=== PATIENT | female | born 1945 | race Caucasian/White ===

== ENCOUNTER 2018-07-31 12:28 | Outpatient (CLI) | payer MEDICARE | END 2018-07-31 12:29 | disposition home or self-care (01) | LOC: BICMAMMO 12:28 | PROVIDERS: ATTEND Nurse Practitioner Adult Health | DX: Z12.31 Encounter for screening mammogram for malignant neoplasm of breast (principal); Z80.3 Family history of malignant neoplasm of breast | CPT/HCPCS: 77063; 77067 ==

== ENCOUNTER 2019-04-06 13:11 | Emergency (ER) | payer MEDICARE | END 2019-04-06 14:15 | disposition home or self-care (01) | LOC: ERS 13:11 | DX: M79.651 Pain in right thigh (principal); I10 Essential (primary) hypertension; F17.200 Nicotine dependence, unspecified, uncomplicated | CPT/HCPCS: 99283 ==

== ENCOUNTER 2019-04-22 11:52 | Outpatient (CLI) | payer MEDICARE ==
--- NOTE | 2019-04-22 14:22 | MRI ---
EXAM: Lumbar spine MRI without contrast. HISTORY: Lumbar spondylosis low back pain COMPARISON: None FINDINGS: Multiplanar, multisequence MRI examination of the lumbar spine is performed. The conus medullaris region appears unremarkable. No evidence for abnormal marrow signal. 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 Grade 1 anterolisthesis of L4 and L5. Mild disc bulging at T11-T12. T12-L1 disc level: Central annular fissure with mild lateral recess stenosis worse on the left side L1-L2 disc level: Severe central canal and lateral recess stenosis and moderate bilateral foraminal s tenosis. L2-L3 disc level: Severe bilateral recess stenosis and severe central canal stenosis and moderate for aminal stenosis more severe on the right side. L3-L4 disc level: Severe central canal and lateral recess and moderate to severe bilateral foraminal stenosis. L4-L5 disc level: Grade 1 anterolisthesis with severe central canal, lateral recess, and foraminal st enosis. L5-S1 disc level: Moderate to severe central canal and lateral recess stenosis and bilateral foramina l stenosis. IMPRESSION: Multilevel variable severity canal, lateral recess, or foraminal stenosis up to severe at multiple le vels.
== END 2019-04-22 11:53 | disposition home or self-care (01) ==
LOC: BICMRI 11:52
PROVIDERS: ATTEND Psychiatry & Neurology Psychiatry
DX: M48.16 Ankylosing hyperostosis [Forestier], lumbar region (principal); M48.061 Spinal stenosis, lumbar region without neurogenic claudication
CPT/HCPCS: 72148

== ENCOUNTER 2021-06-15 18:43 | Inpatient (IN) | payer MEDICARE ==
[2021-06-15 19:28] LABS: #Basophils 0.1 thou/uL (0.0-0.2); #Eosinphils 0.2 thou/uL (0.0-0.7); #Monocytes 0.8 thou/uL (0.11-0.59); #Neutrophils 4.7 thou/uL (1.40-6.50); %Basophils 1.1 % (0.0-1.0); %Eosinophils 2.8 % (0.0-10.0); %Lymphocytes 33.8 % (21.0-51.0); %Monocytes 8.9 % (0.0-10.0); %Neutrophils 53.4 % (42.0-75.0); Hemoglobin 13.1 g/dL (12.0-16.0); Mean Corpuscular HGB CONC 33.2 g/dL (32.0-36.0); Mean Corpuscular Hemoglobin 31.9 pg (27.0-31.0); Mean Corpuscular Volume 95.9 fL (78.0-98.0); Mean Platelet Volume 7.8 fL (7.4-10.4); Platelet Count 179 thou/uL (130-400); RBC Distribution Width 11.4 % (11.5-14.5); Red Blood Cell (RBC) Count 4.12 mill/uL (4.20-5.40); White Blood Cell (WBC) Count 8.8 thou/uL (4.8-10.8)
[2021-06-15 19:49] LABS: ALT (SGPT) 13 U/L (8-55); AST (SGOT) 16 U/L (5-34); Albumin 3.7 g/dL (3.4-4.8); Alkaline Phosphatase 47 U/L (40-110); Anion Gap 12 mmol/L (10-20); BUN (Urea Nitrogen) 19 mg/dL (9.8-20.1); Bilirubin, Total 0.6 mg/dL (0.2-1.2); Calc. Creatinine Clearance 0 mL/min (70-130); Calcium 9.1 mg/dL (7.8-10.44); Carbon Dioxide 24 mmol/L (23-31); Chloride 109 mmol/L (98-107); Globulin 3.3 g/dL (2.4-3.5); Glucose 90 mg/dL (83-110); Potassium 4.1 mmol/L (3.5-5.1); Sodium 141 mmol/L (136-145)
[2021-06-15 19:50] LABS: INR-International Normal Ratio 1.1; Prothrombin Time 14.2 sec (12.0-14.7)
[2021-06-15 19:56] LABS: PTT 141.7 sec (22.9-36.1)
[2021-06-15 20:11] LABS: CKMB 2.1 ng/mL (0-6.6)
[2021-06-15] MEDS ORDERED: Enoxaparin Sodium 80 MG/0.8 ML SYRINGE ONE (20:13)
[2021-06-15] MEDS ORDERED: Enoxaparin Sodium 30 MG/0.3 ML SYRINGE ONE (20:13)
[2021-06-15 21:42] VITALS: BMI 41.4
[2021-06-15] MEDS ORDERED: Aspirin Chewable 81 MG TAB PO SCH (21:45)
[2021-06-15 22:48] LABS: Troponin I 0.127 ng/mL (< 0.028)
[2021-06-15] MEDS: Mag-Al 1200 mg/1200 mg/30 ML UDCUP PO PRN (23:28)
[2021-06-16 01:54] LABS: Troponin I 0.118 ng/mL (< 0.028)
[2021-06-16 05:26] LABS: #Basophils 0.1 thou/uL (0.0-0.2); #Eosinphils 0.2 thou/uL (0.0-0.7); #Lymphocytes 2.6 thou/uL (1.20-3.40); #Monocytes 0.8 thou/uL (0.11-0.59); #Neutrophils 3.6 thou/uL (1.40-6.50); %Basophils 1.5 % (0.0-1.0); %Eosinophils 2.9 % (0.0-10.0); %Lymphocytes 35.3 % (21.0-51.0); %Neutrophils 49.2 % (42.0-75.0); Hemoglobin 12.7 g/dL (12.0-16.0); Mean Corpuscular HGB CONC 34.6 g/dL (32.0-36.0); Mean Corpuscular Hemoglobin 33.6 pg (27.0-31.0); Mean Corpuscular Volume 97.1 fL (78.0-98.0); Platelet Count 159 thou/uL (130-400); RBC Distribution Width 11.3 % (11.5-14.5); Red Blood Cell (RBC) Count 3.79 mill/uL (4.20-5.40); White Blood Cell (WBC) Count 7.3 thou/uL (4.8-10.8)
[2021-06-16 05:54] LABS: Anion Gap 13 mmol/L (10-20); BUN (Urea Nitrogen) 22 mg/dL (9.8-20.1); Calc. Creatinine Clearance 66 mL/min (70-130); Carbon Dioxide 21 mmol/L (23-31); Chloride 110 mmol/L (98-107); Cholesterol 178 mg/dl (< 200 Desired); Glucose 95 mg/dL (83-110); HDL Cholesterol 45 mg/dL (>60 Neg Risk); LDL Cholesterol, Calculated 108 mg/dL; Potassium 3.9 mmol/L (3.5-5.1); Sodium 140 mmol/L (136-145); Triglycerides 123 mg/dL (Less than 150)
[2021-06-16] MEDS: Aspirin Chewable 81 MG TAB PO SCH (07:20)
[2021-06-16 07:24] LABS: Magnesium 1.9 mg/dL (1.6-2.6); Phosphorus 3.9 mg/dL (2.3-4.7)
[2021-06-16] MEDS: Enoxaparin Sodium 120 MG/0.8 ML SYRINGE SC SCH ×2 (07:27→20:53)
[2021-06-16 07:28] LABS: Hemoglobin A1c 4.9 % (4.0-6.0)
[2021-06-16] MEDS ORDERED: Metoprolol Tartrate 25 MG TAB PO SCH (11:45)
[2021-06-16] MEDS ORDERED: Acetaminophen 500 MG TAB PO PRN (20:36)
[2021-06-16] MEDS ORDERED: Melatonin 3 MG TAB PO PRN (20:36)
[2021-06-16] MEDS ORDERED: Docusate 100 MG CAP PO PRN (20:36)
[2021-06-16] MEDS: Metoprolol Tartrate 25 MG TAB PO SCH (20:53)
[2021-06-17] MEDS: Atorvastatin Calcium 40 MG TAB PO SCH (08:33)
[2021-06-17] MEDS: Aspirin Chewable 81 MG TAB PO SCH (08:33)
[2021-06-17] MEDS: Metoprolol Tartrate 25 MG TAB PO SCH ×2 (08:34→21:05)
[2021-06-17] MEDS: Enoxaparin Sodium 120 MG/0.8 ML SYRINGE SC SCH ×2 (08:34→21:06)
[2021-06-17 14:04] LABS: SARS-CoV-2 PCR by NAA Indeterminate (NotDetected)
[2021-06-17] MEDS ORDERED: Atorvastatin Calcium 40 MG TAB PO SCH (21:00)
[2021-06-18 01:39] LABS: SARS-CoV-2 NAA Rapid Test Not Detected (NotDetected)
[2021-06-18] MEDS: Metoprolol Tartrate 25 MG TAB PO SCH ×2 (06:13→21:07)
[2021-06-18] MEDS: Atorvastatin Calcium 40 MG TAB PO SCH (06:13)
[2021-06-18] MEDS: Aspirin Chewable 81 MG TAB PO SCH (06:13)
[2021-06-18] MEDS ORDERED: Non-Formulary Item 1 EACH (Esomeprazole Magnesium [Esomeprazole Magnesium] 20 MG Capsule. PO PRN (06:40)
[2021-06-18] MEDS ORDERED: Heparin 10,000 UNITS/ 10 ML VIAL ONE (07:54)
[2021-06-18] MEDS ORDERED: Nitroglycerin 100MG/250ML BOT 0 ML ONE (07:54)
[2021-06-18] MEDS ORDERED: Lidocaine 1% (PF) 30 ML VIAL ONE (07:54)
[2021-06-18] MEDS ORDERED: Verapamil 5 MG/2 ML VIAL ONE (07:54)
[2021-06-18] MEDS ORDERED: Midazolam HCl 2 mg/2 ml Vial ONE (08:17)
[2021-06-18] MEDS ORDERED: Fentanyl 100 MCG/2 ML VIAL ONE (08:17)
[2021-06-18] MEDS ORDERED: Metoprolol Tartrate 5 MG/5 ML VIAL ONE (08:32)
[2021-06-18] MEDS ORDERED: Ondansetron PF 4 MG/2 ML Vial ONE (08:32)
[2021-06-18] MEDS ORDERED: Atropine Sulfate 1 mg/10 ml Syringe ONE (08:33)
[2021-06-18] MEDS ORDERED: Sodium Chloride 0.9% 200 ML IV PRN (08:50)
[2021-06-18] MEDS ORDERED: Acetaminophen/Codeine 30-300mg Tablet PO PRN (08:50)
[2021-06-18] MEDS ORDERED: Nitroglycerin 0.4 MG TAB (25 Tab Bottle) SL PRN (08:50)
[2021-06-18] MEDS ORDERED: Cyanocobalamin (Vitamin B-12) 1,000 MCG TAB PO SCH (09:00)
[2021-06-18] MEDS ORDERED: Multivit, Therapeutic 1 TAB PO SCH (09:00)
[2021-06-18] MEDS ORDERED: CHOLECALCIFEROL PO SCH ×2 (09:00)
[2021-06-18] MEDS ORDERED: ZINC PO SCH ×2 (09:00)
[2021-06-18] MEDS ORDERED: CALCIUM PO SCH ×2 (09:00)
[2021-06-18] MEDS ORDERED: Non-Formulary Item 1 EACH (Cyanocobalamin (Vitamin B-12) [Vitamin B12] 2,500 MCG Tablet) PO SCH (09:00)
[2021-06-18] MEDS ORDERED: Non-Formulary Item 1 EACH (Multivit-Min/Iron/Folic/Lutein [Multivitamin Women 50 Plus Tab PO SCH (09:00)
[2021-06-18] MEDS ORDERED: Sodium Chloride 0.9% 500 ML IV SCH (09:00)
[2021-06-18] MEDS ORDERED: MAGNESIUM PO SCH ×2 (09:00)
[2021-06-18] MEDS: Lisinopril 10 MG TAB PO SCH (09:44)
[2021-06-18] MEDS ORDERED: Iopamidol 370 76% 100 ML VIAL ONE (10:57)
[2021-06-18 12:04] LABS: #Basophils 0.1 thou/uL (0.0-0.2); #Eosinphils 0.2 thou/uL (0.0-0.7); #Lymphocytes 2.4 thou/uL (1.20-3.40); #Monocytes 0.6 thou/uL (0.11-0.59); #Neutrophils 3.9 thou/uL (1.40-6.50); %Basophils 1.2 % (0.0-1.0); %Eosinophils 2.5 % (0.0-10.0); %Lymphocytes 33.3 % (21.0-51.0); %Monocytes 7.9 % (0.0-10.0); %Neutrophils 55.1 % (42.0-75.0); Hemoglobin 13.4 g/dL (12.0-16.0); Mean Corpuscular HGB CONC 32.8 g/dL (32.0-36.0); Mean Corpuscular Hemoglobin 31.7 pg (27.0-31.0); Mean Corpuscular Volume 96.6 fL (78.0-98.0); Mean Platelet Volume 8.1 fL (7.4-10.4); Platelet Count 178 thou/uL (130-400); RBC Distribution Width 11.4 % (11.5-14.5); Red Blood Cell (RBC) Count 4.23 mill/uL (4.20-5.40); White Blood Cell (WBC) Count 7.1 thou/uL (4.8-10.8)
[2021-06-18 12:20] LABS: ALT (SGPT) 23 U/L (8-55); AST (SGOT) 30 U/L (5-34); Albumin 3.5 g/dL (3.4-4.8); Alkaline Phosphatase 46 U/L (40-110); Anion Gap 10 mmol/L (10-20); BUN (Urea Nitrogen) 23 mg/dL (9.8-20.1); Bilirubin, Total 0.7 mg/dL (0.2-1.2); Calc. Creatinine Clearance 57 mL/min (70-130); Calcium 9.5 mg/dL (7.8-10.44); Carbon Dioxide 25 mmol/L (23-31); Chloride 106 mmol/L (98-107); Globulin 3.4 g/dL (2.4-3.5); Glucose 105 mg/dL (83-110); Potassium 4.3 mmol/L (3.5-5.1); Protein, Total 6.9 g/dL (5.8-8.1); Sodium 137 mmol/L (136-145)
[2021-06-18] MEDS: Mag-Al 1200 mg/1200 mg/30 ML UDCUP PO PRN (21:07)
[2021-06-19] MEDS ORDERED: ceFAZolin Sodium (SDC) 2 GM in Premix Bag 1 BAG IVPB SCH (02:00)
[2021-06-19] MEDS: Metoprolol Tartrate 25 MG TAB PO SCH (05:31)
[2021-06-19] MEDS: Lisinopril 10 MG TAB PO SCH (05:31)
[2021-06-19] MEDS ORDERED: Albumin 5% 500 ML ONE (06:27)
[2021-06-19] MEDS ORDERED: Heparin 10,000 UNITS/1 ML VIAL 30,000 UNITS in Sodium Chloride 0.9% 1,000 ML FS SCH (06:45)
[2021-06-19] MEDS ORDERED: Dexmedetomidine 200 MCG/2 ML VIAL ONE ×2 (06:54→07:54)
[2021-06-19] MEDS ORDERED: Midazolam HCl 5 mg/5 ml Vial ONE (06:54)
[2021-06-19] MEDS ORDERED: Fentanyl 250 MCG/5 ML VIAL ONE (06:54)
[2021-06-19] MEDS ORDERED: ceFAZolin 2 GM/DEX 5% 100 ML BAG ONE (07:17)
[2021-06-19] MEDS ORDERED: Heparin 5,000 UNITS/ML VIAL ONE (07:36)
[2021-06-19] MEDS ORDERED: Aminocaproic Acid 5 GM/20 ML VIAL ONE (07:36)
[2021-06-19] MEDS ORDERED: Dexamethasone 20 MG/5 ML VIAL ONE (07:36)
[2021-06-19] MEDS ORDERED: Protamine Sulfate 250 MG/25 ML VIAL ONE (07:36)
[2021-06-19] MEDS ORDERED: Potassium Chloride 60 MEQ/30 ML VIAL ONE (07:36)
[2021-06-19] MEDS ORDERED: Calcium Chloride 1 GM/10 ML Abboject SYRINGE ONE (07:36)
[2021-06-19] MEDS ORDERED: Nitroglycerin 50 MG/250 ML BOT ONE (07:36)
[2021-06-19] MEDS ORDERED: Mannitol 12.5 GM/50 ML ONE (07:36)
[2021-06-19] MEDS ORDERED: Heparin 30,000 units/30 ml VIAL ONE (07:36)
[2021-06-19] MEDS ORDERED: Lidocaine 1% PF 5 ML VIAL ONE (07:36)
[2021-06-19] MEDS ORDERED: Ondansetron PF 4 MG/2 ML Vial ONE (07:36)
[2021-06-19] MEDS ORDERED: Vecuronium 10 MG VIAL ONE (07:36)
[2021-06-19] MEDS ORDERED: Magnesium Sulfate 1 GM/2 ML VIAL ONE (07:36)
[2021-06-19] MEDS ORDERED: Cardioplegic Soln 1,000 ML BAG ONE (07:36)
[2021-06-19] MEDS ORDERED: Thrombin 5000 UNITS/5 ML VIAL ONE (07:36)
[2021-06-19] MEDS ORDERED: PROPOFOL 200 MG/20 ML VIAL ONE (07:36)
[2021-06-19] MEDS ORDERED: Sodium Bicarb 50 MEQ/50 ML Abboject 8.4% SYRINGE ONE ×2 (07:36→12:45)
[2021-06-19] MEDS ORDERED: Papaverine 60 MG/2 ML VIAL ONE (07:36)
[2021-06-19] MEDS ORDERED: Lidocaine 2% PF 100 mg/5 ml Syringe ONE (07:36)
[2021-06-19] MEDS ORDERED: Glycopyrrolate 0.2 MG/ML 5 ML SYRINGE ONE (07:36)
[2021-06-19] MEDS ORDERED: Insulin Regular 300 UNITS/3 ML VIAL ONE (09:52)
[2021-06-19] MEDS ORDERED: Bisacodyl 10 MG SUPP PR PRN (11:03)
[2021-06-19] MEDS ORDERED: Morphine 2 MG/ML VIAL SLOW IVP PRN (11:03)
[2021-06-19] MEDS ORDERED: DOPamine 400 MG/D5W 250 ML 250 ML IVPB PRN (11:03)
[2021-06-19] MEDS ORDERED: Fentanyl 100 MCG/2 ML VIAL SLOW IVP PRN (11:03)
[2021-06-19] MEDS ORDERED: Mag-Al 1200 mg/1200 mg/30 ML UDCUP PO PRN (11:03)
[2021-06-19] MEDS ORDERED: Post-Op Insulin Drip Protocol IVPB ONE (11:03)
[2021-06-19] MEDS ORDERED: Nitroglycerin 50 MG/250 ML BOT 250 ML IVPB PRN (11:03)
[2021-06-19] MEDS ORDERED: hydrALAZINE 20 MG/ML VIAL SLOW IVP PRN (11:03)
[2021-06-19] MEDS ORDERED: Norepinephrine 8 MG/0.9% NS 250 ML IVPB PRN (11:03)
[2021-06-19] MEDS ORDERED: Hetastarch 6% 500 ML 500 ML IVPB PRN (11:03)
[2021-06-19] MEDS ORDERED: Guaifenesin DM 100-10/5 ML UDCUP PO PRN (11:03)
[2021-06-19] MEDS ORDERED: Acetaminophen 325 MG TAB PO PRN (11:03)
[2021-06-19] MEDS ORDERED: Promethazine HCl 25 MG/ML VIAL IM PRN (11:03)
[2021-06-19] MEDS ORDERED: Potassium Chloride 20 MEQ/100 ML PREMIX BAG IVPB PRN (11:03)
[2021-06-19] MEDS ORDERED: niCARdipine 25 MG in Sodium Chloride 0.9% 250 ML 250 ML IVPB PRN (11:03)
[2021-06-19 11:43] LABS: #Eosinphils 0.1 thou/uL (0.0-0.7); #Lymphocytes 2.4 thou/uL (1.20-3.40); #Monocytes 0.8 thou/uL (0.11-0.59); %Basophils 0.2 % (0.0-1.0); %Lymphocytes 16.6 % (21.0-51.0); %Monocytes 5.8 % (0.0-10.0); %Neutrophils 76.4 % (42.0-75.0); Hemoglobin 11.6 g/dL (12.0-16.0); Mean Corpuscular HGB CONC 34.7 g/dL (32.0-36.0); Mean Corpuscular Hemoglobin 33.9 pg (27.0-31.0); Mean Corpuscular Volume 97.6 fL (78.0-98.0); Platelet Count 141 thou/uL (130-400); RBC Distribution Width 11.4 % (11.5-14.5); Red Blood Cell (RBC) Count 3.42 mill/uL (4.20-5.40); White Blood Cell (WBC) Count 14.5 thou/uL (4.8-10.8)
[2021-06-19 12:01] LABS: INR-International Normal Ratio 1.2; Prothrombin Time 15.8 sec (12.0-14.7)
[2021-06-19] MEDS ORDERED: HUMULIN R 100 UNITS in Sodium Chloride 0.9% 100 ML IVPB SCH (12:15)
[2021-06-19] MEDS ORDERED: Insulin Regular 300 UNITS/3 ML VIAL SC PRN (12:15)
[2021-06-19] MEDS ORDERED: Dextrose 50% Abboject 50 ML SYRINGE SLOW IVP PRN (12:15)
[2021-06-19] MEDS ORDERED: Dextrose 5% in Water 1,000 ML IV PRN (12:15)
[2021-06-19] MEDS ORDERED: Lantus 1000 UNITS/10 ML VIAL SC PRN (12:15)
[2021-06-19] MEDS: Lactated Ringer's 1,000 ML IV SCH (12:16)
[2021-06-19] MEDS: Fentanyl 100 MCG/2 ML VIAL SLOW IVP PRN ×4 (12:16→23:13)
[2021-06-19 12:18] LABS: Anion Gap 9 mmol/L (10-20); BUN (Urea Nitrogen) 19 mg/dL (9.8-20.1); Calc. Creatinine Clearance 64 mL/min (70-130); Calcium 7.9 mg/dL (7.8-10.44); Carbon Dioxide 26 mmol/L (23-31); Chloride 108 mmol/L (98-107); Glucose 96 mg/dL (83-110); Potassium 4.3 mmol/L (3.5-5.1); Sodium 139 mmol/L (136-145)
[2021-06-19] MEDS ORDERED: Sodium Bicarb 50 MEQ/50 ML Abboject 8.4% SYRINGE IVP SCH (13:15)
[2021-06-19] MEDS: ceFAZolin Sodium/D5W 2 GM in Premix Bag 1 BAG IVPB SCH ×2 (13:46→21:12)
[2021-06-19] MEDS: HYDROcodone/Acetaminophen 5/325 mg Tablet PO PRN ×2 (13:46→21:11)
[2021-06-19 17:02] LABS: Hemoglobin 11.2 g/dL (12.0-16.0)
[2021-06-19 17:11] LABS: Potassium 4.7 mmol/L (3.5-5.1)
[2021-06-19] MEDS: Ondansetron PF 4 MG/2 ML Vial IVP PRN (20:09)
[2021-06-19] MEDS ORDERED: Famotidine/PF 20 mg/2ml Vial SLOW IVP SCH (21:00)
[2021-06-20] MEDS: HYDROcodone/Acetaminophen 5/325 mg Tablet PO PRN ×5 (02:12→23:25)
[2021-06-20] MEDS: Fentanyl 100 MCG/2 ML VIAL SLOW IVP PRN ×3 (02:13→07:41)
[2021-06-20] MEDS: Lactated Ringer's 1,000 ML IV SCH (02:14)
[2021-06-20 04:11] LABS: Anion Gap 10 mmol/L (10-20); BUN (Urea Nitrogen) 22 mg/dL (9.8-20.1); Calc. Creatinine Clearance 57 mL/min (70-130); Calcium 7.9 mg/dL (7.8-10.44); Carbon Dioxide 24 mmol/L (23-31); Chloride 106 mmol/L (98-107); Glucose 117 mg/dL (83-110); Potassium 4.4 mmol/L (3.5-5.1); Sodium 136 mmol/L (136-145)
[2021-06-20] MEDS: ceFAZolin Sodium/D5W 2 GM in Premix Bag 1 BAG IVPB SCH (05:20)
[2021-06-20] MEDS: Ondansetron PF 4 MG/2 ML Vial IVP PRN ×3 (06:50→19:19)
[2021-06-20] MEDS ORDERED: Nitroglycerin 0.4 MG TAB (25 Tab Bottle) SL PRN (08:29)
[2021-06-20] MEDS ORDERED: Mineral Oil ENEMA PR PRN (08:29)
[2021-06-20] MEDS: Aspirin 325 MG TAB PO SCH (09:30)
[2021-06-20] MEDS: Famotidine 20 MG TAB PO SCH ×2 (09:30→19:18)
[2021-06-20] MEDS: Polyethylene Glycol 3350 17 GM Packet PO SCH (09:30)
[2021-06-20] MEDS: Clopidogrel Bisulfate 75 MG TAB PO SCH (09:30)
[2021-06-20] MEDS ORDERED: DOPamine 400 MG/D5W 250 ML 250 ML ONE (16:35)
[2021-06-20] MEDS ORDERED: DOPamine 400 MG/D5W 250 ML 250 ML IVPB SCH (17:30)
[2021-06-20] MEDS: Atorvastatin Calcium 40 MG TAB PO SCH (19:18)
[2021-06-20] MEDS: Bisacodyl 5 MG TAB PO PRN (20:17)
[2021-06-20] MEDS ORDERED: Enoxaparin Sodium 40 MG/0.4 ML SYRINGE SC SCH (21:00)
[2021-06-20] MEDS ORDERED: Famotidine/PF 20 mg/2ml Vial SLOW IVP SCH (21:00)
[2021-06-21] MEDS: HYDROcodone/Acetaminophen 5/325 mg Tablet PO PRN ×3 (03:51→23:02)
[2021-06-21 07:52] LABS: Anion Gap 14 mmol/L (10-20); BUN (Urea Nitrogen) 34 mg/dL (9.8-20.1); Calc. Creatinine Clearance 44 mL/min (70-130); Calcium 7.9 mg/dL (7.8-10.44); Carbon Dioxide 21 mmol/L (23-31); Chloride 102 mmol/L (98-107); Glucose 114 mg/dL (83-110); Potassium 4.7 mmol/L (3.5-5.1); Sodium 132 mmol/L (136-145)
[2021-06-21 08:33] LABS: Band 8 % (5-11); Hemoglobin 10.1 g/dL (12.0-16.0); Lymphocytes 11 % (21-51); MDiff Complete? YES; Mean Corpuscular HGB CONC 32.8 g/dL (32.0-36.0); Mean Corpuscular Hemoglobin 32.1 pg (27.0-31.0); Mean Corpuscular Volume 97.7 fL (78.0-98.0); Monocytes 14 % (0-10); Neutrophil 66 % (42-75); Platelet Count 119 thou/uL (130-400); Platelet Morphology Comment Appears Decreased; Polychromasia SLIGHT = 2-3 cells (100X) (0-2/hpf); RBC Distribution Width 11.6 % (11.5-14.5); Red Blood Cell (RBC) Count 3.15 mill/uL (4.20-5.40); White Blood Cell (WBC) Count 14.1 thou/uL (4.8-10.8)
[2021-06-21] MEDS: Aspirin 325 MG TAB PO SCH (09:03)
[2021-06-21] MEDS: Polyethylene Glycol 3350 17 GM Packet PO SCH (09:04)
[2021-06-21] MEDS: Furosemide 40 MG TAB PO SCH (09:04)
[2021-06-21] MEDS: Clopidogrel Bisulfate 75 MG TAB PO SCH (09:04)
[2021-06-21] MEDS: Amiodarone 450 MG in Dextrose 5% in Water 250 ML IVPB SCH (16:15)
[2021-06-21] MEDS ORDERED: Enoxaparin Sodium 30 MG/0.3 ML SYRINGE SC SCH (21:00)
[2021-06-21] MEDS: Atorvastatin Calcium 40 MG TAB PO SCH (22:55)
[2021-06-21] MEDS: Famotidine 20 MG TAB PO SCH (22:55)
[2021-06-22] MEDS: Amiodarone 450 MG in Dextrose 5% in Water 250 ML IVPB SCH (01:53)
[2021-06-22 07:04] LABS: Anion Gap 9 mmol/L (10-20); BUN (Urea Nitrogen) 34 mg/dL (9.8-20.1); Calc. Creatinine Clearance 49 mL/min (70-130); Calcium 8.1 mg/dL (7.8-10.44); Carbon Dioxide 26 mmol/L (23-31); Chloride 102 mmol/L (98-107); Glucose 105 mg/dL (83-110); Potassium 4.4 mmol/L (3.5-5.1); Sodium 133 mmol/L (136-145)
[2021-06-22] MEDS: Polyethylene Glycol 3350 17 GM Packet PO SCH (09:03)
[2021-06-22] MEDS: Clopidogrel Bisulfate 75 MG TAB PO SCH (09:05)
[2021-06-22] MEDS: Aspirin Chewable 81 MG TAB PO SCH (09:05)
[2021-06-22] MEDS: Furosemide 40 MG TAB PO SCH (09:05)
[2021-06-22] MEDS: HYDROcodone/Acetaminophen 5/325 mg Tablet PO PRN ×2 (09:06→20:17)
[2021-06-22] MEDS: Atorvastatin Calcium 40 MG TAB PO SCH (20:15)
[2021-06-22] MEDS: Amiodarone 200 MG TAB PO SCH (20:15)
[2021-06-22] MEDS: Famotidine 20 MG TAB PO SCH (20:15)
[2021-06-23 04:42] LABS: #Basophils 0.1 thou/uL (0.0-0.2); #Eosinphils 0.2 thou/uL (0.0-0.7); #Lymphocytes 2.3 thou/uL (1.20-3.40); #Monocytes 1.4 thou/uL (0.11-0.59); #Neutrophils 6.5 thou/uL (1.40-6.50); %Basophils 0.7 % (0.0-1.0); %Eosinophils 2.1 % (0.0-10.0); %Lymphocytes 21.7 % (21.0-51.0); %Neutrophils 62.5 % (42.0-75.0); Hemoglobin 9.3 g/dL (12.0-16.0); Mean Corpuscular HGB CONC 34.8 g/dL (32.0-36.0); Mean Corpuscular Hemoglobin 33.7 pg (27.0-31.0); Mean Corpuscular Volume 96.9 fL (78.0-98.0); Platelet Count 173 thou/uL (130-400); RBC Distribution Width 11.6 % (11.5-14.5); Red Blood Cell (RBC) Count 2.76 mill/uL (4.20-5.40); White Blood Cell (WBC) Count 10.4 thou/uL (4.8-10.8)
[2021-06-23 05:09] LABS: Anion Gap 12 mmol/L (10-20); BUN (Urea Nitrogen) 27 mg/dL (9.8-20.1); Calc. Creatinine Clearance 59 mL/min (70-130); Calcium 8.4 mg/dL (7.8-10.44); Carbon Dioxide 24 mmol/L (23-31); Chloride 103 mmol/L (98-107); Glucose 94 mg/dL (83-110); Potassium 4.5 mmol/L (3.5-5.1); Sodium 134 mmol/L (136-145)
[2021-06-23] MEDS: Furosemide 40 MG TAB PO SCH (08:54)
[2021-06-23] MEDS: Amiodarone 200 MG TAB PO SCH ×2 (08:54→20:12)
[2021-06-23] MEDS: Clopidogrel Bisulfate 75 MG TAB PO SCH (08:54)
[2021-06-23] MEDS: Aspirin Chewable 81 MG TAB PO SCH (08:54)
[2021-06-23] MEDS: Polyethylene Glycol 3350 17 GM Packet PO SCH (08:54)
[2021-06-23] MEDS: Bisacodyl 5 MG TAB PO PRN (15:19)
[2021-06-23] MEDS: Atorvastatin Calcium 40 MG TAB PO SCH (20:12)
[2021-06-23] MEDS: Famotidine 20 MG TAB PO SCH (20:13)
[2021-06-23] MEDS: HYDROcodone/Acetaminophen 5/325 mg Tablet PO PRN (20:13)
[2021-06-24] MEDS: Amiodarone 200 MG TAB PO SCH ×2 (08:37→20:42)
[2021-06-24] MEDS: Aspirin Chewable 81 MG TAB PO SCH (08:37)
[2021-06-24] MEDS: Polyethylene Glycol 3350 17 GM Packet PO SCH (08:38)
[2021-06-24] MEDS: Clopidogrel Bisulfate 75 MG TAB PO SCH (08:38)
[2021-06-24] MEDS: Furosemide 40 MG TAB PO SCH (08:38)
[2021-06-24 16:53] LABS: Bacteria/HPF 1+ HPF (None Seen); Bilirubin Negative (Negative); Blood, Urine Negative (Negative); Clarity Clear (Clear); Glucose, Urine (Dipstick) Normal (Negative); Ketone, Urine Negative (Negative); Leukocyte 250 Leu/uL (Negative); Nitrite Negative (Negative); Protein, Urine (Dipstick) Negative (Neg-Trace); RBC/HPF 0-3 HPF (0-3); Squamous Epithelial None Seen HPF (0-3); Urobilinogen Normal mg/dL (Less than 2); pH, Urine 5.5 (5.0-9.0)
[2021-06-24 16:55] LABS: Urine Culture Reflex Yes Yes
[2021-06-24] MEDS: Famotidine 20 MG TAB PO SCH (20:41)
[2021-06-24] MEDS: HYDROcodone/Acetaminophen 5/325 mg Tablet PO PRN (20:42)
[2021-06-24] MEDS: Atorvastatin Calcium 40 MG TAB PO SCH (20:42)
[2021-06-24] MEDS ORDERED: Tamsulosin HCl 0.4 MG CAP PO SCH (21:00)
[2021-06-24] MEDS ORDERED: cefTRIAXone\\ROCEPHIN 1 GM in Sodium Chloride 0.9% 100 ML IVPB SCH (22:00)
[2021-06-25] MEDS: Furosemide 40 MG TAB PO SCH (09:31)
[2021-06-25] MEDS: Amiodarone 200 MG TAB PO SCH (09:31)
[2021-06-25] MEDS: Clopidogrel Bisulfate 75 MG TAB PO SCH (09:31)
[2021-06-25] MEDS: Aspirin Chewable 81 MG TAB PO SCH (09:31)
[2021-06-25] MEDS: Polyethylene Glycol 3350 17 GM Packet PO SCH (09:32)
[2021-06-25 11:11] VITALS: BP 174/76; TEMP 98.3
[2021-06-26] MEDS ORDERED: Lisinopril 5 MG TAB PO SCH (09:00)
== END 2021-06-25 12:50 | disposition home or self-care (01) | DRG 234 ==
LOC: ERS 18:43 → 2SW 19:44 → OBSVTOIN 06-17 08:14 → CCU 06-19 06:44 → 2NO 06-20 17:48
PROVIDERS: ADMIT Family Medicine; ATTEND Family Medicine
PROC: 4A023N7 Measurement of Cardiac Sampling and Pressure, Left Heart, Percutaneous Approach (ICD-10-PCS; principal; 2021-06-18)
PROC: B2111ZZ Fluoroscopy of Multiple Coronary Arteries using Low Osmolar Contrast (ICD-10-PCS; 2021-06-18)
PROC: B2151ZZ Fluoroscopy of Left Heart using Low Osmolar Contrast (ICD-10-PCS; 2021-06-18)
PROC: 02100Z9 Bypass Coronary Artery, One Artery from Left Internal Mammary, Open Approach (ICD-10-PCS; 2021-06-20)
PROC: 021009W Bypass Coronary Artery, One Artery from Aorta with Autologous Venous Tissue, Open Approach (ICD-10-PCS; 2021-06-20)
PROC: 06BQ0ZZ Excision of Left Saphenous Vein, Open Approach (ICD-10-PCS; 2021-06-20)
PROC: 02L70ZK Occlusion of Left Atrial Appendage, Open Approach (ICD-10-PCS; 2021-06-20)
PROC: 5A1221Z Performance of Cardiac Output, Continuous (ICD-10-PCS; 2021-06-20)
DX: I21.4 Non-ST elevation (NSTEMI) myocardial infarction (principal); Z68.41 Body mass index [BMI] 40.0-44.9, adult; I13.0 Hypertensive heart and chronic kidney disease with heart failure and stage 1 through stage 4 chronic kidney disease, or unspecified chronic kidney disease; I50.22 Chronic systolic (congestive) heart failure; I42.9 Cardiomyopathy, unspecified; I97.190 Other postprocedural cardiac functional disturbances following cardiac surgery; N39.0 Urinary tract infection, site not specified; N17.9 Acute kidney failure, unspecified; Z20.822 Contact with and (suspected) exposure to COVID-19; M48.00 Spinal stenosis, site unspecified; N18.30 Chronic kidney disease, stage 3 unspecified; K21.9 Gastro-esophageal reflux disease without esophagitis; E66.01 Morbid (severe) obesity due to excess calories; Z96.653 Presence of artificial knee joint, bilateral; I25.110 Atherosclerotic heart disease of native coronary artery with unstable angina pectoris; Z87.891 Personal history of nicotine dependence; Z79.899 Other long term (current) drug therapy; Z90.49 Acquired absence of other specified parts of digestive tract; Z90.710 Acquired absence of both cervix and uterus; I48.91 Unspecified atrial fibrillation; Y83.8 Other surgical procedures as the cause of abnormal reaction of the patient, or of later complication, without mention of misadventure at the time of the procedure; R33.9 Retention of urine, unspecified
CPT/HCPCS: 36415; 36416; 36430; 71045; 80048; 80053; 80061; 81001; 82553; 83036; 83690; 83735; 83880; 84100; 84443; 84484; 85025; 85610; 85730; 86850; 86900; 86901; 86922; 87077; 87086; 87186; 93005; 93010; 93306; 93458; 93798; 94660; 94760; 96372; 97139; 99152; C1776; J0282; J0461; J0696; J1100; J1265; J1642; J1644; J1650; J1815; J2001; J2150; J2250; J2405; J2440; J2704; J2720; J3010; J3370; J3475; J3480; J3490; J7030; J7070; J7120; P9045; Q9967; S0017; S0028; U0002; U0003; U0005